=== PATIENT | female | born 1990 | race Caucasian/White ===

== ENCOUNTER → 2021-04-06 08:43 | Outpatient (BNVA) | payer OTHER, SELFPAY | PROVIDERS: PCP Family Medicine; Visit Provider Advanced Practice Midwife | DX: Z34.82 Encounter for supervision of other normal pregnancy, second trimester (principal); V89.2XXA Person injured in unspecified motor-vehicle accident, traffic, initial encounter; Z98.891 History of uterine scar from previous surgery; Z3A.25 25 weeks gestation of pregnancy | CPT/HCPCS: 81025; 99212 ==

== ENCOUNTER 2021-04-08 11:28 | Outpatient (REF) | payer OTHER, SELFPAY ==
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
== END 2021-04-08 11:29 | disposition home or self-care (01) ==
LOC: HO.US 11:28
PROVIDERS: Visit Provider Advanced Practice Midwife
DX: Z04.1 Encounter for examination and observation following transport accident (principal); O34.219 Maternal care for unspecified type scar from previous cesarean delivery; O09.32 Supervision of pregnancy with insufficient antenatal care, second trimester; Z3A.25 25 weeks gestation of pregnancy
CPT/HCPCS: 76811

== ENCOUNTER → 2021-04-20 09:53 | Outpatient (BNVA) | payer OTHER, SELFPAY | PROVIDERS: Visit Provider Advanced Practice Midwife | DX: O99.323 Drug use complicating pregnancy, third trimester (principal); O34.211 Maternal care for low transverse scar from previous cesarean delivery; F12.20 Cannabis dependence, uncomplicated; Z3A.27 27 weeks gestation of pregnancy | CPT/HCPCS: 99212 ==

== ENCOUNTER 2021-04-21 09:53 | Outpatient (REF) | payer OTHER, SELFPAY ==
[2021-04-21 13:03] LABS: Hematocrit 30.2 % (37.0-47.0); Hemoglobin 10.1 g/dl (12.0-16.0); Mean Corpuscular HGB Conc 33.4 g/dl (31.0-35.0); Mean Corpuscular Hemoglobin 30.2 pg (27.0-33.0); Mean Corpuscular Volume 90.4 fL (80.0-98.0); Mean Platelet Volume 11.8 fL (9.4-12.3); Platelet Count 161 X10*3/uL (160-400); Red Blood Count 3.34 X10*6/uL (4.20-5.50); Red Cell Distribution Width 13.4 % (11.0-16.0)
[2021-04-21 13:14] LABS: Glucose 1 Hour PP 50gm Dose 174 mg/dL (60-140)
[2021-04-21 14:59] LABS: Amphetamine Screen Urine Not Detected (Not Detect); Barbiturates, Urine Not Detected (Not Detect); Benzodiazepines Screen Urine Not Detected (Not Detect); Cannabinoid Screen Urine POSITIVE (Not Detect); Cocaine Screen Urine Not Detected (Not Detect); Fentanyl, urine Not Detected (Not Detect); Opiate Screen Urine Not Detected (Not Detect); Phencyclidine Screen Urine Not Detected (Not Detect)
[2021-04-21 15:37] LABS: CT PCR NOT DETECTED (Not Detect.); NG PCR NOT DETECTED (Not Detect.)
[2021-04-22 08:32] LABS: Syphilis Screen Nonreactive (Nonreactive)
[2021-04-22 08:42] LABS: Rubella IgG Antibody 3.59 Index
[2021-04-22 09:01] LABS: HBsAGNum1 0.14 S/CO (0.00-0.99); Hepatitis B Surface Antigen Negative (Negative); ~HepC Num1 0.14 S/CO (0.00-0.79); ~Hepatitis C Antibody Nonreactive (Nonreactive)
[2021-04-22 09:24] LABS: HIV AB/AG Nonreactive (Nonreactive)
[2021-04-26 21:50] LABS: HPV mRNA E6/E7 rflx Not Detected (Not Detected)
== END 2021-04-21 09:54 | disposition home or self-care (01) ==
LOC: HO.LAB 09:53
PROVIDERS: Visit Provider Advanced Practice Midwife
DX: O99.342 Other mental disorders complicating pregnancy, second trimester (principal); O99.322 Drug use complicating pregnancy, second trimester; O26.892 Other specified pregnancy related conditions, second trimester; O21.9 Vomiting of pregnancy, unspecified; F12.980 Cannabis use, unspecified with anxiety disorder; R12 Heartburn
CPT/HCPCS: 80307; 85027; 86762; 86780; 86787; 86803; 86850; 86900; 86901; 87086; 87340; 87389; 87491; 87591; 87624; 88142; 99212

== ENCOUNTER 2021-04-25 12:54 | Outpatient (REF) | payer OTHER, SELFPAY ==
[2021-04-25 15:55] LABS: Glucose 2 Hour 106 mg/dL
[2021-04-25 15:55] LABS: Glucose 1 Hour 118 mg/dL
[2021-04-25 16:16] LABS: Glucose Fasting 57 mg/dL (60-99)
[2021-04-25 17:15] LABS: Glucose 3 Hour 50 mg/dL
== END 2021-04-25 12:55 | disposition home or self-care (01) ==
LOC: HO.LAB 12:54
PROVIDERS: Visit Provider Advanced Practice Midwife
DX: O99.810 Abnormal glucose complicating pregnancy (principal)
CPT/HCPCS: 36415; 82951

== ENCOUNTER → 2021-05-05 10:46 | Outpatient (BNVA) | payer OTHER, SELFPAY | PROVIDERS: Visit Provider Advanced Practice Midwife ==

== ENCOUNTER → 2021-05-11 10:08 | Outpatient (BNVA) | payer OTHER, SELFPAY | PROVIDERS: Visit Provider Advanced Practice Midwife | DX: Z34.83 Encounter for supervision of other normal pregnancy, third trimester (principal); Z3A.30 30 weeks gestation of pregnancy; Z98.891 History of uterine scar from previous surgery | CPT/HCPCS: 81003; 99212 ==

== ENCOUNTER → 2021-05-18 15:42 | Outpatient (BNVA) | payer OTHER, SELFPAY | PROVIDERS: Visit Provider Obstetrics & Gynecology | DX: O34.219 Maternal care for unspecified type scar from previous cesarean delivery (principal); Z3A.31 31 weeks gestation of pregnancy | CPT/HCPCS: 99212 ==

== ENCOUNTER → 2021-05-30 11:49 | Outpatient (BNVA) | payer OTHER, SELFPAY | PROVIDERS: Visit Provider Obstetrics & Gynecology | DX: Z03.74 Encounter for suspected problem with fetal growth ruled out (principal); Z3A.33 33 weeks gestation of pregnancy | CPT/HCPCS: 99212 ==

== ENCOUNTER 2021-06-03 11:35 | Outpatient (REF) | payer OTHER, SELFPAY ==
--- NOTE | ~2021-06-03 | US_ITS ---
EXAMINATION: OBSTETRICAL ULTRASOUND, Follow up HISTORY: 31-year-old at 33.6 weeks of gestation Size date discrepancy COMPARISON: 04/08/2021 TECHNIQUE: Real time transabdominal imaging with color and M-mode Doppler. PRESENTATION: Vertex PLACENTA LOCATION: Posterior without previa AMNIOTIC FLUID: JAZMINE 12.4 cm MEASUREMENTS: 1. Biparietal Diameter: 8.05 cm; 32.3 wks 2. Head Circumference: 30.5 cm; 34.0 wks 3. Abdominal Circumference: 26.9 cm; 31.1 wks 4. Femur Length: 6.2 cm; 32.0 wks 5. Heart Rate: 147 beats per minute WEIGHT: EFW: 1803 grams (4 lbs 0 oz) -- 4 %. BIOPHYSICAL PROFILE: Motion: 2 Tone: 2 Breathin Amniotic Fluid: 2 Total score: 8/8 Umbilical artery Doppler showed SD ratio of 3.0. GESTATIONAL AGE: 1. Established GA: 33.6 wks 2. GA from AUA: 32.3 wks ESTIMATED DATE OF DELIVERY: 1. Established ROGER: 07/16/2021 2. ROGER from AUA: 07/26/2021 US/US OB follow up IMPRESSION: 1. A single active fetus is in vertex presentation 2. Size less than dates, the EFW corresponds to 4th percentile 3. Reassuring biophysical profile 4. Normal SD ratio in the umbilical artery. I reviewed today's ultrasound findings with the patient. We discussed the limitations of ultrasound and estimating weights. I reassured her that majority of the fetuses whose EFW falls below 10th percentile are constitutionally small but healthy fetuses who are growing to their full genetic potential. Approximately 30% of these fetuses may be experiencing IUGR due to placental insufficiency. She informs me that her first baby was also being monitored for IUGR. The weight was 6 lbs. 5 oz. He is healthy and doing well. I recommended weekly NST, BPP and UA Doppler (scheduled). Thank you very much for this referral. Total time 30 minutes. The time spent was devoted to counseling the patient about the disease and diagnosis, coordinating care including reviewing her records, pertinent lab data and studies, as well as discussing diagnostic evaluation and workup, plan therapeutic interventions and future disposition of care. This includes any additional research needed to obtain further information in formulating the plan of care of this patient. This note was generated with a voice recognition program. Please excuse any errors which may have been overlooked during my review of this note. Sometimes these errors may affect the content or meaning of a given sentence.
== END 2021-06-03 11:36 | disposition home or self-care (01) ==
LOC: HO.US 11:35
PROVIDERS: Visit Provider Obstetrics & Gynecology
DX: Z03.74 Encounter for suspected problem with fetal growth ruled out (principal)
CPT/HCPCS: 76816

== ENCOUNTER → 2021-06-15 15:01 | Outpatient (BNVA) | payer OTHER, SELFPAY | PROVIDERS: Visit Provider Obstetrics & Gynecology | DX: O36.5930 Maternal care for other known or suspected poor fetal growth, third trimester, not applicable or unspecified (principal); O34.211 Maternal care for low transverse scar from previous cesarean delivery; Z3A.35 35 weeks gestation of pregnancy | CPT/HCPCS: 59025; 81003; 99212 ==

== ENCOUNTER 2021-06-17 11:27 | Outpatient (REF) | payer OTHER, SELFPAY ==
--- NOTE | ~2021-06-17 | US_ITS ---
EXAMINATION: OBSTETRICAL ULTRASOUND, Follow up HISTORY: 31-year-old at the 35.6 weeks of gestation IUGR COMPARISON: 06/03/2021 TECHNIQUE: Real time transabdominal imaging with color and M-mode Doppler. PRESENTATION: Vertex PLACENTA LOCATION: Posterior without previa AMNIOTIC FLUID: JAZMINE 8.3 cm MEASUREMENTS: 1. Biparietal Diameter: 8.2 cm; 33.1 wks 2. Head Circumference: 31.3 cm; 35.1 wks 3. Abdominal Circumference: 28.1 cm; 32.1 wks 4. Femur Length: 6.7 cm; 34.2 wks 5. Heart Rate: 150 beats per minute WEIGHT: EFW: 2105 grams (4 lbs 10 oz) -- 3 %. BIOPHYSICAL PROFILE: Motion: 2 Tone: 2 Breathin Amniotic Fluid: 2 Total score: 8/8 UA Doppler showed SD ratio of 3.3 GESTATIONAL AGE: 1. Established GA: 35.6 wks 2. GA from AUA: 33.5 wks ESTIMATED DATE OF DELIVERY: 1. Established ROGER: 07/16/2021 2. ROGER from AUA: 07/31/2021 US/US OB biophysical profile IMPRESSION: 1. A single active fetus is in vertex presentation 2. Size less than dates, EFW corresponds to 3rd percentile. However compared to prior exam, there has been appropriate. 3. Reassuring testing including the umbilical artery Doppler. I informed the patient that the interval growth has been appropriate. Again the EFW corresponds to 3rd percentile. With her first , she was followed for IUGR as well. She delivered a healthy child with the weight of 6 lbs. 5 oz. Patient is aware that the majority of the fetuses whose EFW falls below 10th percentile are constitutionally small but healthy fetuses who are growing to their full genetic potential. Approximately 30% of these fetuses may be experiencing IUGR. She is to continue weekly surveillance. Thank you very much for this referral. Total time 30 minutes. The time spent was devoted to counseling the patient about the disease and diagnosis, coordinating care including reviewing her records, pertinent lab data and studies, as well as discussing diagnostic evaluation and workup, plan therapeutic interventions and future disposition of care. This includes any additional research needed to obtain further information in formulating the plan of care of this patient. This note was generated with a voice recognition program. Please excuse any errors which may have been overlooked during my review of this note. Sometimes these errors may affect the content or meaning of a given sentence.
== END 2021-06-17 11:28 | disposition home or self-care (01) ==
LOC: HO.US 11:27
PROVIDERS: Visit Provider Obstetrics & Gynecology
DX: O36.5930 Maternal care for other known or suspected poor fetal growth, third trimester, not applicable or unspecified (principal); O98.813 Other maternal infectious and parasitic diseases complicating pregnancy, third trimester; B95.1 Streptococcus, group B, as the cause of diseases classified elsewhere; O99.810 Abnormal glucose complicating pregnancy; O99.323 Drug use complicating pregnancy, third trimester; F12.20 Cannabis dependence, uncomplicated; O34.211 Maternal care for low transverse scar from previous cesarean delivery; Z3A.35 35 weeks gestation of pregnancy; Z23 Encounter for immunization
CPT/HCPCS: 76819; 81003; 90471; 90715; 99212

== ENCOUNTER 2021-06-17 14:06 | Outpatient (REF) | payer OTHER, SELFPAY ==
[2021-06-18 13:00] LABS: CT PCR NOT DETECTED (Not Detect.); NG PCR NOT DETECTED (Not Detect.)
== END 2021-06-17 14:07 | disposition home or self-care (01) ==
LOC: HO.LAB 14:06
PROVIDERS: Visit Provider Advanced Practice Midwife
DX: Z34.93 Encounter for supervision of normal pregnancy, unspecified, third trimester (principal); Z3A.00 Weeks of gestation of pregnancy not specified
CPT/HCPCS: 87081; 87147; 87491; 87591

== ENCOUNTER → 2021-06-21 10:02 | Outpatient (BNVA) | payer OTHER, SELFPAY | PROVIDERS: Visit Provider Advanced Practice Midwife | DX: O36.5930 Maternal care for other known or suspected poor fetal growth, third trimester, not applicable or unspecified (principal); O36.8330 Maternal care for abnormalities of the fetal heart rate or rhythm, third trimester, not applicable or unspecified; Z3A.36 36 weeks gestation of pregnancy | CPT/HCPCS: 59025; 99212 ==